=== PATIENT | male | born 1935 | race Caucasian/White ===

== ENCOUNTER → 2017-05-04 | Outpatient (CLI) | payer MEDICARE, BC ==
[2013-10-28 16:55] VITALS: BP 146/80
[~2017-05-04] MED LIST: Ambien PO; CALCIUM CARBONATE PO; CARBIDOPA/LEVODOPA PO; CELEXA 20MG20 MG/TA1 PO; CLOPIDOGREL PO; COLACE 100100 MG/CAP PO; FINASTERIDE1 MG PO; FLONASE NASAL S16 GM NS; LOPRESSOR50 MG PO; METOPROLOL SUCC50 MG PO; MIRALAX PA17 GM/Dose PO; PROTONIX 40MG T40 MG PO; RT SPIRIVA INH18 MCG IH; TYLENOL 325MG325 MG PO; VIAGRA100 MG PO; ZYRTEC10 MG PO
== END ==
LOC: LAB 14:02
DX: I10 Essential (primary) hypertension (principal); E03.4 Atrophy of thyroid (acquired); J41.0 Simple chronic bronchitis; G81.11 Spastic hemiplegia affecting right dominant side; K57.90 Diverticulosis of intestine, part unspecified, without perforation or abscess without bleeding

== ENCOUNTER → 2018-04-28 | Outpatient (CLI) | payer MEDICARE, BC ==
[2013-10-28 16:55] VITALS: BP 146/80
[2018-04-28 14:00] LABS: HEMOGLOBIN 15.7 g/dL (13.5-18.0); MEAN CELL VOLUME 87 fl (78-100); MEAN CORPUSCULAR HEMOGLOBIN 30 pg (27-31); MEAN CORPUSCULAR HGB CONC 34 g/dL (33-37); MEAN PLATELET VOLUME 9.8 fl (7.4-10.4); PLATELET COUNT 280 K/mm3 (130-400); RED BLOOD COUNT 5.29 M/mm3 (4.20-5.60); RED CELL DISTRIBUTION WIDTH 13.8 % (11.5-14.5); WHITE BLOOD COUNT 7.3 K/mm3 (4.8-10.8)
[2018-04-28 14:15] LABS: ALBUMIN 3.9 g/dL (3.5-5.0); BUN/CREATININE RATIO 15.2 (6.0-26.0); CALCIUM 8.6 mg/dL (8.4-10.2); POTASSIUM 4.5 mmol/L (3.6-5.0); TOTAL BILIRUBIN 0.5 mg/dL (0.2-1.3); TOTAL PROTEIN 7.5 g/dL (6.3-8.2)
[2018-04-28 15:52] LABS: LYMPHOCYTE 21 % (20-51); MONOCYTE 9 % (3-10); NEUTROPHILS 69 % (42-75)
== END ==
LOC: LAB 13:41
PROVIDERS: Nurse Practitioner Family
DX: I10 Essential (primary) hypertension (principal); K21.9 Gastro-esophageal reflux disease without esophagitis; G81.91 Hemiplegia, unspecified affecting right dominant side; E03.9 Hypothyroidism, unspecified

== ENCOUNTER → 2019-01-20 | Outpatient (CLI) | payer MEDICARE, BC ==
[2013-10-28 16:55] VITALS: BP 146/80
[2019-01-20 14:44] LABS: BASO # 0.1 (0.02-0.10); EOS # 0.1 (0.04-0.40); EOS % 1.4 % (0.0-4.0); HEMATOCRIT 47.4 % (42.0-52.0); HEMOGLOBIN 16.3 g/dL (13.5-18.0); LYMPH# 1.6 (1.50-4.00); MEAN CELL VOLUME 86 fl (78-100); MEAN CORPUSCULAR HEMOGLOBIN 30 pg (27-31); MEAN CORPUSCULAR HGB CONC 34 g/dL (33-37); MEAN PLATELET VOLUME 10.1 fl (7.4-10.4); MONO # 0.8 (0.20-0.80); NEU # 4.4 (1.40-6.50); PLATELET COUNT 304 K/mm3 (130-400)
[2019-01-20 15:33] LABS: ALBUMIN 4.3 g/dL (3.5-5.0); CALCIUM 9.6 mg/dL (8.4-10.2); POTASSIUM 4.6 mmol/L (3.6-5.0); TOTAL BILIRUBIN 0.6 mg/dL (0.2-1.3); TOTAL PROTEIN 7.5 g/dL (6.3-8.2)
== END ==
LOC: LAB 14:08
PROVIDERS: Physician Assistant
DX: I63.9 Cerebral infarction, unspecified (principal); K57.90 Diverticulosis of intestine, part unspecified, without perforation or abscess without bleeding; G81.11 Spastic hemiplegia affecting right dominant side; K21.9 Gastro-esophageal reflux disease without esophagitis; I10 Essential (primary) hypertension; E03.9 Hypothyroidism, unspecified; G20 Parkinson's disease

== ENCOUNTER 2020-06-05 11:47 | Emergency (ER) | payer MEDICARE, BC ==
[~2020-06-05 11:47] MED LIST changes: +LOPRESSOR 550 MG/TAB PO; -LOPRESSOR50 MG PO; -PROTONIX 40MG T40 MG PO; +PROTONIX TR40 M1 PO; +ZYRTEC10 M3 PO; -ZYRTEC10 MG PO
[2020-06-05 12:28] LABS: BASO # 0.1 (0.02-0.10); EOS # 0.2 (0.04-0.40); HEMATOCRIT 43.1 % (42.0-52.0); HEMOGLOBIN 14.8 g/dL (13.5-18.0); LYMPH# 1.9 (1.50-4.00); MEAN CELL VOLUME 86 fl (78-100); MEAN CORPUSCULAR HEMOGLOBIN 29 pg (27-31); MEAN CORPUSCULAR HGB CONC 34 g/dL (33-37); MEAN PLATELET VOLUME 9.3 fl (7.4-10.4); MONO # 0.9 (0.20-0.80); NEU # 4.6 (1.40-6.50); PLATELET COUNT 322 K/mm3 (130-400); RED BLOOD COUNT 5.04 M/mm3 (4.20-5.60); RED CELL DISTRIBUTION WIDTH 13.5 % (11.5-14.5); WHITE BLOOD COUNT 7.6 K/mm3 (4.8-10.8)
[2020-06-05 12:38] LABS: ALBUMIN 3.9 g/dL (3.4-4.8)
[2020-06-05 12:39] LABS: POTASSIUM 3.9 mmol/L (3.5-5.1)
[2020-06-05 12:41] LABS: TOTAL PROTEIN 7.4 g/dL (6.2-8.1)
[2020-06-05 12:43] LABS: TOTAL BILIRUBIN 0.6 mg/dL (0.2-1.2)
[2020-06-05 13:09] LABS: URINE APPEARANCE CLEAR; URINE BILIRUBIN NEGATIVE (NEGATIVE); URINE BLOOD 50 ery/uL (NEGATIVE); URINE COLOR YELLOW; URINE GLUCOSE NEGATIVE (NEGATIVE); URINE KETONE NEGATIVE (NEGATIVE); URINE LEUKOCYTE ESTERASE NEGATIVE (NEGATIVE); URINE MUCUS PRESENT (NOT PRESENT); URINE NITRATE NEGATIVE (NEGATIVE); URINE PROTEIN(semi-quant) TRACE mg/dL (NEGATIVE); URINE UROBILINOGEN NORMAL (NORMAL)
[2020-06-05 13:42] VITALS: BP 143/72
[2020-06-05] MEDS ORDERED: LEVOTHYROXIN0.075 MG PO (15:24)
[2020-06-05] MEDS ORDERED: CLOPIDOGREL PO (15:25)
[2020-06-05] MEDS ORDERED: AMLODIPINE BESYL5 MG PO (15:25)
[2020-06-05] MEDS ORDERED: CARBIDOPA/LEVODOPA PO (15:27)
[2020-06-05] MEDS ORDERED: CELEXA 20MG20 MG/TA1 PO (15:28)
[2020-06-05] MEDS ORDERED: FAMOTIDINE20 MG PO (15:29)
== END 2020-06-05 13:52 | disposition home or self-care (01) ==
LOC: ED 11:47
PROVIDERS: Physician Assistant
DX: S51.012A Laceration without foreign body of left elbow, initial encounter (principal); W01.0XXA Fall on same level from slipping, tripping and stumbling without subsequent striking against object, initial encounter; Z79.02 Long term (current) use of antithrombotics/antiplatelets

== ENCOUNTER → 2021-05-15 | Outpatient (CLI) | payer MEDICARE, BC ==
[~2021-05-15] MED LIST changes: +AMLODIPINE BESYL5 MG PO; +FAMOTIDINE20 MG PO; +LEVOTHYROXIN0.075 MG PO
[2021-05-15 17:06] LABS: BASO # 0.08 (0.02-0.10); EOS # 0.21 (0.04-0.40); HEMOGLOBIN 14.7 g/dL (13.5-18.0); LYMPH# 2.04 (1.50-4.00); MEAN CELL VOLUME 87 fl (78-100); MEAN CORPUSCULAR HEMOGLOBIN 29 pg (27-31); MEAN CORPUSCULAR HGB CONC 33 g/dL (33-37); MEAN PLATELET VOLUME 9.6 fl (7.4-10.4); MONO # 0.81 (0.20-0.80); NEU # 3.84 (1.40-6.50); PLATELET COUNT 310 K/mm3 (130-400); RED BLOOD COUNT 5.05 M/mm3 (4.20-5.60); RED CELL DISTRIBUTION WIDTH 13.2 % (11.5-14.5)
[2021-05-15 17:46] LABS: ALBUMIN 3.6 g/dL (3.4-4.8); POTASSIUM 4.3 mmol/L (3.5-5.1)
[2021-05-15 17:47] LABS: CALCIUM 9.4 mg/dL (8.3-10.5)
[2021-05-15 17:48] LABS: TOTAL PROTEIN 7.5 g/dL (6.2-8.1)
[2021-05-15 17:50] LABS: TOTAL BILIRUBIN 0.6 mg/dL (0.2-1.2)
== END ==
LOC: LAB 16:52
PROVIDERS: Physician Assistant
DX: Z00.00 Encounter for general adult medical examination without abnormal findings (principal); Z12.5 Encounter for screening for malignant neoplasm of prostate; E78.5 Hyperlipidemia, unspecified; E03.4 Atrophy of thyroid (acquired); I10 Essential (primary) hypertension

== ENCOUNTER 2022-04-28 17:16 | Inpatient (IN) | payer MEDICARE, BC ==
[~2022-04-28] VITALS: Wt 76.3 kg
[2022-04-28 18:43] VITALS: BP 191/85
[2022-04-28] MEDS ORDERED: SYNTHROID RP0.1 MG PO (19:17)
[2022-04-28 22:16] VITALS: BP 171/75
[2022-04-29 01:46] VITALS: BP 176/80
[2022-04-29 06:00] VITALS: BP 157/77
[2022-04-29 09:07] VITALS: BP 185/96
[2022-04-29 10:05] LABS: BASO # 0.06 K/mm3 (0.02-0.10); EOS # 0.07 K/mm3 (0.04-0.40); EOS % 0.7 % (0.0-4.0); HEMATOCRIT 40.9 % (42.0-52.0); LYMPH# 1.55 K/mm3 (1.50-4.00); MEAN CELL VOLUME 87 fl (78-100); MEAN CORPUSCULAR HEMOGLOBIN 30 pg (27-31); MEAN CORPUSCULAR HGB CONC 34 g/dL (33-37); MEAN PLATELET VOLUME 9.5 fl (7.4-10.4); MONO # 1.09 K/mm3 (0.20-0.80); NEU # 7.06 K/mm3 (1.40-6.50); PLATELET COUNT 264 K/mm3 (130-400); RED BLOOD COUNT 4.72 M/mm3 (4.20-5.60); RED CELL DISTRIBUTION WIDTH 13.3 % (11.5-14.5); WHITE BLOOD COUNT 9.9 K/mm3 (4.8-10.8)
[2022-04-29 10:08] LABS: ALBUMIN 3.5 g/dL (3.4-4.8)
[2022-04-29 10:09] LABS: POTASSIUM 3.9 mmol/L (3.5-5.1)
[2022-04-29 10:10] LABS: CALCIUM 8.7 mg/dL (8.3-10.5)
[2022-04-29 13:31] VITALS: BP 145/82
[2022-04-29 17:13] VITALS: BP 143/68
[2022-04-29 22:30] VITALS: BP 141/51
[2022-04-30 01:23] VITALS: BP 133/79
[2022-04-30 05:54] VITALS: BP 158/78
[2022-04-30 09:39] VITALS: BP 166/75
[2022-04-30 14:00] VITALS: BP 135/71
[2022-04-30 18:25] VITALS: BP 146/61
[2022-04-30 21:56] VITALS: BP 161/80
[2022-05-01 01:23] VITALS: BP 163/82
[2022-05-01 05:44] VITALS: BP 171/76
[2022-05-01 09:26] VITALS: BP 160/73
[2022-05-01 14:00] VITALS: BP 132/74
[2022-05-01 16:10] VITALS: BP 130/68
[2022-05-01 22:28] VITALS: BP 182/71
[2022-05-02 02:13] VITALS: BP 176/75
[2022-05-02 06:03] VITALS: BP 156/77
[2022-05-02 10:00] VITALS: BP 135/70
[2022-05-02 13:24] VITALS: BP 119/61
[2022-05-02 18:04] VITALS: BP 141/72
[2022-05-02 22:30] VITALS: BP 151/71
[2022-05-03 01:19] VITALS: BP 144/77
[2022-05-03 06:16] VITALS: BP 144/68
[2022-05-03 09:29] VITALS: BP 126/67
[2022-05-03 14:05] VITALS: BP 134/73
[2022-05-03 17:13] VITALS: BP 146/75
[2022-05-03 22:00] VITALS: BP 147/66
[2022-05-04 01:58] VITALS: BP 149/75
[2022-05-04 05:16] VITALS: BP 166/80
[2022-05-04 09:19] VITALS: BP 165/73
[2022-05-04 13:25] VITALS: BP 133/73
[2022-05-04 17:08] VITALS: BP 128/75
[2022-05-04 22:25] VITALS: BP 147/68
[2022-05-05 02:15] VITALS: BP 159/76
[2022-05-05 06:09] VITALS: BP 157/75
[2022-05-05 07:21] LABS: BASO # 0.04 K/mm3 (0.02-0.10); EOS # 0.16 K/mm3 (0.04-0.40); EOS % 2.4 % (0.0-4.0); HEMATOCRIT 39.9 % (42.0-52.0); HEMOGLOBIN 13.9 g/dL (13.5-18.0); LYMPH# 1.62 K/mm3 (1.50-4.00); MEAN CELL VOLUME 85 fl (78-100); MEAN CORPUSCULAR HEMOGLOBIN 30 pg (27-31); MEAN CORPUSCULAR HGB CONC 35 g/dL (33-37); MEAN PLATELET VOLUME 9.9 fl (7.4-10.4); MONO # 0.72 K/mm3 (0.20-0.80); NEU # 4.09 K/mm3 (1.40-6.50); PLATELET COUNT 270 K/mm3 (130-400); RED CELL DISTRIBUTION WIDTH 13.1 % (11.5-14.5); WHITE BLOOD COUNT 6.7 K/mm3 (4.8-10.8)
[2022-05-05 07:29] LABS: ALBUMIN 3.5 g/dL (3.4-4.8)
[2022-05-05 07:30] LABS: CALCIUM 8.7 mg/dL (8.3-10.5)
[2022-05-05 07:32] LABS: TOTAL PROTEIN 7.4 g/dL (6.2-8.1)
[2022-05-05 07:33] LABS: TOTAL BILIRUBIN 0.8 mg/dL (0.2-1.2)
[2022-05-05 09:35] LABS: PH-URINE 6.5 (5.0 - 8.0); URINE APPEARANCE CLEAR; URINE COLOR YELLOW; URINE PROTEIN(semi-quant) TRACE (NEGATIVE)
[2022-05-05 09:36] LABS: URINE BILIRUBIN NEGATIVE (NEGATIVE); URINE BLOOD TRACE (NEGATIVE); URINE GLUCOSE NEGATIVE (NEGATIVE); URINE KETONE NEGATIVE (NEGATIVE); URINE LEUKOCYTE ESTERASE NEGATIVE (NEGATIVE); URINE NITRATE NEGATIVE (NEGATIVE); URINE UROBILINOGEN NORMAL (NORMAL)
[2022-05-05] MEDS ORDERED: NORVASC 10MG10 MG PO (11:39)
== END 2022-05-05 09:10 | disposition swing bed (61) | DRG 57 ==
LOC: MED/SURG 17:16
PROVIDERS: Nurse Practitioner; Physician Assistant; ADMIT Physician Assistant
DX: G20 Parkinson's disease (principal); I69.351 Hemiplegia and hemiparesis following cerebral infarction affecting right dominant side; E87.1 Hypo-osmolality and hyponatremia; J43.9 Emphysema, unspecified; B99.9 Unspecified infectious disease; H10.89 Other conjunctivitis; R13.19 Other dysphagia; I10 Essential (primary) hypertension; R62.7 Adult failure to thrive; F03.90 Unspecified dementia, unspecified severity, without behavioral disturbance, psychotic disturbance, mood disturbance, and anxiety; W18.30XA Fall on same level, unspecified, initial encounter; Z91.81 History of falling; Y92.009 Unspecified place in unspecified non-institutional (private) residence as the place of occurrence of the external cause; Z79.890 Hormone replacement therapy; Z88.2 Allergy status to sulfonamides; Z88.1 Allergy status to other antibiotic agents
CPT/HCPCS: J1650; J7030

== ENCOUNTER 2022-05-05 07:54 | Inpatient (IN) | payer MEDICARE, BC ==
[~2022-05-05] VITALS: Ht 162.6 cm; Wt 80.6 kg
[~2022-05-05 07:54] MED LIST changes: +SYNTHROID RP0.1 MG PO
[2022-05-05] MEDS ORDERED: NORVASC 10MG10 MG PO (11:39)
[2022-05-06 06:17] VITALS: BP 167/68
[2022-05-06 17:06] VITALS: BP 130/67
[2022-05-07 05:33] VITALS: BP 158/69
[2022-05-07 16:08] VITALS: BP 129/64
[2022-05-08 06:22] VITALS: BP 156/73
[2022-05-08 17:04] VITALS: BP 151/74
[2022-05-09 05:27] VITALS: BP 154/83
[2022-05-09 17:10] VITALS: BP 152/72
[2022-05-10 05:23] VITALS: BP 137/76
[2022-05-10 15:16] VITALS: BP 151/72
[2022-05-11 06:02] VITALS: BP 156/72
[2022-05-11 07:34] LABS: BASO # 0.08 K/mm3 (0.02-0.10); EOS # 0.07 K/mm3 (0.04-0.40); HEMATOCRIT 40.3 % (42.0-52.0); HEMOGLOBIN 14.3 g/dL (13.5-18.0); LYMPH# 1.58 K/mm3 (1.50-4.00); MEAN CELL VOLUME 86 fl (78-100); MEAN CORPUSCULAR HEMOGLOBIN 31 pg (27-31); MEAN CORPUSCULAR HGB CONC 36 g/dL (33-37); MEAN PLATELET VOLUME 9.7 fl (7.4-10.4); MONO # 0.69 K/mm3 (0.20-0.80); NEU # 4.43 K/mm3 (1.40-6.50); PLATELET COUNT 358 K/mm3 (130-400); RED BLOOD COUNT 4.69 M/mm3 (4.20-5.60); RED CELL DISTRIBUTION WIDTH 13.2 % (11.5-14.5); WHITE BLOOD COUNT 6.9 K/mm3 (4.8-10.8)
[2022-05-11 07:39] LABS: POTASSIUM 4.1 mmol/L (3.5-5.1)
[2022-05-11 07:40] LABS: CALCIUM 9.1 mg/dL (8.3-10.5)
[2022-05-11 15:36] VITALS: BP 133/72
[2022-05-12 05:49] VITALS: BP 167/74
[2022-05-12 14:58] VITALS: BP 152/69
[2022-05-13 05:56] VITALS: BP 165/74
[2022-05-13 07:58] LABS: POTASSIUM 4.1 mmol/L (3.5-5.1)
[2022-05-13 17:05] VITALS: BP 131/79
[2022-05-13] MEDS ORDERED: RT ALBUTEROL CC18 GM IH (23:26)
[2022-05-13] MEDS ORDERED: COLACE100 M1 PO (23:26)
[2022-05-14 05:47] LABS: POTASSIUM 4.1 mmol/L (3.5-5.1)
[2022-05-14 05:48] LABS: CALCIUM 8.4 mg/dL (8.3-10.5)
[2022-05-14 06:05] VITALS: BP 159/81
[2022-05-14] MEDS ORDERED: NORVASC 10MG10 MG PO (07:39)
[2022-05-14 17:26] VITALS: BP 146/75
[2022-05-15 00:33] LABS: CORTISOL, AM (0800) 15 ug/dL (3-20)
[2022-05-15 05:29] VITALS: BP 146/70
[2022-05-15 09:44] LABS: BASO # 0.05 K/mm3 (0.02-0.10); EOS # 0.07 K/mm3 (0.04-0.40); HEMATOCRIT 42.7 % (42.0-52.0); HEMOGLOBIN 14.7 g/dL (13.5-18.0); LYMPH# 1.36 K/mm3 (1.50-4.00); MEAN CELL VOLUME 86 fl (78-100); MEAN CORPUSCULAR HEMOGLOBIN 30 pg (27-31); MEAN CORPUSCULAR HGB CONC 34 g/dL (33-37); MEAN PLATELET VOLUME 9.3 fl (7.4-10.4); MONO # 0.49 K/mm3 (0.20-0.80); NEU # 4.69 K/mm3 (1.40-6.50); PLATELET COUNT 401 K/mm3 (130-400); RED BLOOD COUNT 4.97 M/mm3 (4.20-5.60); RED CELL DISTRIBUTION WIDTH 13.1 % (11.5-14.5); WHITE BLOOD COUNT 6.7 K/mm3 (4.8-10.8)
[2022-05-15 09:47] LABS: ALBUMIN 3.8 g/dL (3.4-4.8)
[2022-05-15 09:49] LABS: TOTAL PROTEIN 7.6 g/dL (6.2-8.1)
[2022-05-15 09:51] LABS: TOTAL BILIRUBIN 0.8 mg/dL (0.2-1.2)
[2022-05-15 17:52] VITALS: BP 138/71
[2022-05-16 05:45] VITALS: BP 146/59
[2022-05-18 18:23] LABS: ADRENOCORTICOTROPIC HORMONE 103 pg/mL (5-27)
== END 2022-05-16 09:45 | DRG 948 ==
LOC: MED/SURG 07:54
PROVIDERS: Internal Medicine; Nurse Practitioner; ADMIT Physician Assistant
DX: R53.81 Other malaise (principal); E87.1 Hypo-osmolality and hyponatremia; I69.351 Hemiplegia and hemiparesis following cerebral infarction affecting right dominant side; J43.9 Emphysema, unspecified; I10 Essential (primary) hypertension; G20 Parkinson's disease; Z91.81 History of falling; Z88.2 Allergy status to sulfonamides; Z88.1 Allergy status to other antibiotic agents
CPT/HCPCS: J1650; J7030

== ENCOUNTER 2022-05-16 15:43 | Emergency (ER) | payer MEDICARE, BC ==
[~2022-05-16] VITALS: Ht 162.6 cm; Wt 80.6 kg
[~2022-05-16 15:43] MED LIST changes: +COLACE100 M1 PO; +NORVASC 10MG10 MG PO; +RT ALBUTEROL CC18 GM IH
[2022-05-16 16:01] VITALS: BP 154/76
== END 2022-05-16 19:22 | disposition home or self-care (01) ==
LOC: ED 15:43
DX: S61.412A Laceration without foreign body of left hand, initial encounter (principal); M81.0 Age-related osteoporosis without current pathological fracture; X58.XXXA Exposure to other specified factors, initial encounter; Y92.092 Bedroom in other non-institutional residence as the place of occurrence of the external cause

== ENCOUNTER 2022-05-27 12:21 | Observation (INO) | payer MEDICARE, BC ==
[~2022-05-27] VITALS: Ht 172.7 cm; Wt 80.6 kg
[2022-05-27 12:50] LABS: BASO # 0.06 K/mm3 (0.02-0.10); EOS # 0.06 K/mm3 (0.04-0.40); EOS % 0.5 % (0.0-4.0); HEMATOCRIT 44.6 % (42.0-52.0); LYMPH# 1.93 K/mm3 (1.50-4.00); MEAN CELL VOLUME 88 fl (78-100); MEAN CORPUSCULAR HEMOGLOBIN 30 pg (27-31); MEAN CORPUSCULAR HGB CONC 34 g/dL (33-37); MEAN PLATELET VOLUME 9.2 fl (7.4-10.4); MONO # 1.21 K/mm3 (0.20-0.80); NEU # 9.94 K/mm3 (1.40-6.50); PLATELET COUNT 407 K/mm3 (130-400); RED BLOOD COUNT 5.09 M/mm3 (4.20-5.60); RED CELL DISTRIBUTION WIDTH 13.5 % (11.5-14.5); WHITE BLOOD COUNT 13.2 K/mm3 (4.8-10.8)
[2022-05-27 12:59] LABS: ALBUMIN 3.8 g/dL (3.4-4.8)
[2022-05-27 13:01] LABS: CALCIUM 9.6 mg/dL (8.3-10.5)
[2022-05-27 13:02] LABS: TOTAL PROTEIN 7.8 g/dL (6.2-8.1)
[2022-05-27 13:04] LABS: TOTAL BILIRUBIN 0.9 mg/dL (0.2-1.2)
[2022-05-27 13:48] LABS: URINE APPEARANCE CLOUDY; URINE BILIRUBIN NEGATIVE (NEGATIVE); URINE BLOOD 250 ery/uL (NEGATIVE); URINE COLOR BROWN; URINE GLUCOSE NEGATIVE (NEGATIVE); URINE KETONE 1+ (NEGATIVE); URINE LEUKOCYTE ESTERASE 2+ (NEGATIVE); URINE NITRATE POSITIVE (NEGATIVE); URINE PROTEIN(semi-quant) 2+ (NEGATIVE); URINE UROBILINOGEN NORMAL (NORMAL); URINE WBC 31-50 /hpf (0-3)
[2022-05-27 16:00] VITALS: BP 159/72
[2022-05-27 16:49] VITALS: BP 177/77
[2022-05-27 23:13] VITALS: BP 184/73
[2022-05-28 02:23] VITALS: BP 157/75
[2022-05-28 05:44] VITALS: BP 181/69
[2022-05-28 06:58] LABS: BASO # 0.08 K/mm3 (0.02-0.10); EOS # 0.12 K/mm3 (0.04-0.40); EOS % 1.5 % (0.0-4.0); HEMATOCRIT 39.8 % (42.0-52.0); HEMOGLOBIN 13.7 g/dL (13.5-18.0); LYMPH# 1.67 K/mm3 (1.50-4.00); MEAN CELL VOLUME 87 fl (78-100); MEAN CORPUSCULAR HEMOGLOBIN 30 pg (27-31); MEAN CORPUSCULAR HGB CONC 34 g/dL (33-37); MEAN PLATELET VOLUME 9.4 fl (7.4-10.4); NEU # 5.55 K/mm3 (1.40-6.50); PLATELET COUNT 339 K/mm3 (130-400); RED BLOOD COUNT 4.57 M/mm3 (4.20-5.60); RED CELL DISTRIBUTION WIDTH 13.5 % (11.5-14.5); WHITE BLOOD COUNT 8.2 K/mm3 (4.8-10.8)
[2022-05-28 08:43] LABS: POTASSIUM 3.7 mmol/L (3.5-5.1)
[2022-05-28 08:45] LABS: CALCIUM 8.9 mg/dL (8.3-10.5)
[2022-05-28 10:15] VITALS: BP 104/66
[2022-05-28 13:45] VITALS: BP 105/55
[2022-05-28] MEDS ORDERED: CEPHALEXIN500 M1 PO (14:00)
== END 2022-05-28 17:22 | disposition home or self-care (01) ==
LOC: ED 12:21 → MED/SURG 14:49
PROVIDERS: ADMIT Physician Assistant
DX: N39.0 Urinary tract infection, site not specified (principal); E87.1 Hypo-osmolality and hyponatremia; I69.951 Hemiplegia and hemiparesis following unspecified cerebrovascular disease affecting right dominant side; F03.90 Unspecified dementia, unspecified severity, without behavioral disturbance, psychotic disturbance, mood disturbance, and anxiety; I10 Essential (primary) hypertension
CPT/HCPCS: G0378; J0696; J1650

== ENCOUNTER 2022-06-18 17:40 | Emergency (ER) | payer MEDICARE, BC ==
[~2022-06-18 17:40] MED LIST changes: +CEPHALEXIN500 M1 PO
[2022-06-18] MEDS ORDERED: AMLODIPINE BESYL5 MG PO (18:40)
[2022-06-18 19:30] VITALS: BP 157/87
== END 2022-06-18 19:31 | disposition home or self-care (01) ==
LOC: ED 17:40
DX: S42.211A Unspecified displaced fracture of surgical neck of right humerus, initial encounter for closed fracture (principal); Z28.310 Unvaccinated for COVID-19; W18.30XA Fall on same level, unspecified, initial encounter

== ENCOUNTER → 2022-06-23 | Outpatient (CLI) | payer MEDICARE, BC ==
[~2022-06-23] MED LIST changes: +MACROBID 100 M100 MG PO; +MACROBID 1100 MG/CAP PO
[2022-06-23 20:17] LABS: URINE APPEARANCE CLOUDY; URINE BILIRUBIN 1+ (NEGATIVE); URINE BLOOD 250 ery/uL (NEGATIVE); URINE COLOR YELLOW; URINE GLUCOSE NEGATIVE (NEGATIVE); URINE KETONE NEGATIVE (NEGATIVE); URINE LEUKOCYTE ESTERASE 2+ (NEGATIVE); URINE NITRATE NEGATIVE (NEGATIVE); URINE PROTEIN(semi-quant) 3+ (NEGATIVE); URINE UROBILINOGEN 8 mg/dL (NORMAL)
[2022-06-23 20:18] LABS: URINE MUCUS PRESENT (NOT PRESENT); URINE WBC >50 /hpf (0-3)
== END ==
LOC: LAB 18:05
PROVIDERS: Physician Assistant
DX: R35.0 Frequency of micturition (principal)

== ENCOUNTER 2022-06-25 04:29 | Emergency (ER) | payer MEDICARE, BC ==
[~2022-06-25] VITALS: Ht 182.9 cm; Wt 71.8 kg
[~2022-06-25 04:29] MED LIST changes: -MACROBID 100 M100 MG PO; -MACROBID 1100 MG/CAP PO
[2022-06-25 05:43] LABS: BASO # 0.08 K/mm3 (0.02-0.10); EOS # 0.14 K/mm3 (0.04-0.40); EOS % 1.2 % (0.0-4.0); HEMATOCRIT 43.3 % (42.0-52.0); HEMOGLOBIN 14.6 g/dL (13.5-18.0); LYMPH# 2.02 K/mm3 (1.50-4.00); MEAN CELL VOLUME 88 fl (78-100); MEAN CORPUSCULAR HEMOGLOBIN 30 pg (27-31); MEAN CORPUSCULAR HGB CONC 34 g/dL (33-37); MEAN PLATELET VOLUME 9.9 fl (7.4-10.4); MONO # 0.81 K/mm3 (0.20-0.80); NEU # 8.26 K/mm3 (1.40-6.50); PLATELET COUNT 417 K/mm3 (130-400); RED BLOOD COUNT 4.94 M/mm3 (4.20-5.60); RED CELL DISTRIBUTION WIDTH 13.4 % (11.5-14.5); WHITE BLOOD COUNT 11.4 K/mm3 (4.8-10.8)
[2022-06-25 05:50] LABS: ALBUMIN 3.5 g/dL (3.4-4.8); POTASSIUM 3.5 mmol/L (3.5-5.1)
[2022-06-25 05:51] LABS: CALCIUM 9.3 mg/dL (8.3-10.5)
[2022-06-25 05:52] LABS: TOTAL PROTEIN 7.5 g/dL (6.2-8.1)
[2022-06-25 05:54] LABS: TOTAL BILIRUBIN 0.9 mg/dL (0.2-1.2)
[2022-06-25] MEDS ORDERED: MACROBID 1100 MG/CAP PO (06:00)
[2022-06-25] MEDS ORDERED: MACROBID 100 M100 MG PO (06:39)
--- NOTE | 2022-06-25 16:24 | NUR ---
Spoke with Kian from [facility]. She would like to know if we could have a rapid covid test in the morning of 06/26/22? She would also like to know if [facility] could transport tomorrow to [facility]? They will assist in getting him into their facility.
[2022-06-26 11:20] VITALS: BP 154/84
== END 2022-06-26 11:25 ==
LOC: ED 04:29
PROVIDERS: Physician Assistant
DX: S42.301A Unspecified fracture of shaft of humerus, right arm, initial encounter for closed fracture (principal); N39.0 Urinary tract infection, site not specified; G20 Parkinson's disease; F02.80 Dementia in other diseases classified elsewhere, unspecified severity, without behavioral disturbance, psychotic disturbance, mood disturbance, and anxiety; Z20.822 Contact with and (suspected) exposure to COVID-19; W06.XXXA Fall from bed, initial encounter
CPT/HCPCS: J0696

== ENCOUNTER → 2022-08-08 | Outpatient (CLI) | payer MEDICARE, BC ==
[~2022-08-08] MED LIST changes: +MACROBID 100 M100 MG PO; +MACROBID 1100 MG/CAP PO
[2022-08-19 14:15] LABS: CORTISOL,URINE AMS
== END ==
LOC: LAB 18:09
PROVIDERS: Internal Medicine
DX: R94.7 Abnormal results of other endocrine function studies (principal)

== ENCOUNTER → 2022-08-31 | Outpatient (CLI) | payer MEDICARE, BC | LOC: RAD 11:17 | DX: S42.291D Other displaced fracture of upper end of right humerus, subsequent encounter for fracture with routine healing (principal); X58.XXXD Exposure to other specified factors, subsequent encounter ==